=== PATIENT | female | born 1970 | race Caucasian/White ===

== ENCOUNTER 2021-05-10 14:46 | Inpatient (IN) | payer SELFPAY ==
[2021-05-10 14:59] VITALS: PULSE 86; RESP 16; TEMP 36.7; O2SAT 95; BMI 36.0
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
[2021-05-10 15:13] VITALS: PULSE 86; RESP 17; TEMP 36.9; O2SAT 95
--- NOTE | 2021-05-10 15:29 | ECG_ITS ---
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 Measurements Intervals [place] Rate: 78 P: 70 AL: 142 QRS: 60 QRSD: 89 T: 58 QT: 410 QTc: 469 Interpretive Statements SINUS RHYTHM POSSIBLE LEFT ATRIAL ENLARGEMENT [-0.1mV P-WAVE IN V1/V2] POSSIBLE RIGHT VENTRICULAR CONDUCTION DELAY [RSR (QR) IN V1/V2] No previous ECG available for comparison Electronically Signed On 05-10-2021 16:09:30 CDT by Deirdre Morales M.D. [id number]
[2021-05-10 15:56] LABS: HCG Qualitative Urine. Negative (Negative)
[2021-05-10 16:03] LABS: Amphetamines Screen Urine Negative (Negative); Barbiturates Screen Urine Negative (Negative); Benzodiazepines Screen Urine Negative (Negative); Cocaine Screen Urine Negative (Negative); Opiate Screen Urine Negative (Negative); PCP Screen Urine Negative (Negative); THC Screen Urine Negative (Negative)
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
[2021-05-10 16:18] LABS: Basophils % 0.6 %; Eosinophils # 0.2 10^3/uL (0.0-0.8); Eosinophils % 3.5 %; Hematocrit 46.1 % (37.0-47.0); Hemoglobin 14.9 g/dL (11.5-15.3); Lymphocytes # 2.3 10^3/uL (0.8-4.8); Lymphocytes % 36.6 %; Mean Corpuscular HGB Conc 32.3 g/dL (30.0-36.0); Mean Corpuscular Volume 99.1 fl (81-99); Mean Platelet Volume 9.8 fL (7.4-10.4); Monocytes # 0.4 10^3/uL (0.2-0.9); Monocytes % 6.2 %; Neutrophils # 3.34 10^3/uL (1.8-7.7); Neutrophils % 52.9 %; Nucleated Red Blood Cells % 0 %; Platelet Count 281 10^3/cmm (130-400); Red Blood Count 4.65 10^6/uL (4.1-5.3); Red Cell Distribution Width 12.9 % (12.1-15.1); White Blood Count 6.3 10^3/uL (4.0-10.0)
[2021-05-10 16:43] LABS: Alanine Aminotransferase 16 U/L (0-33); Albumin Level 3.8 g/dL (3.5-5.2); Alkaline Phosphatase 68 IU/L (35-105); Anion Gap 13.6 (5-19); Aspartate Amino Transferase 17 U/L (0-32); Blood Urea Nitrogen 6 mg/dL (6-20); Calcium 8.8 mg/dL (8.5-10.5); Carbon Dioxide 28 mmol/L (22-29); Chloride 103 mmol/L (98-107); Globulin 2.9 g/dL (1.3-4.6); Glomerular Filtration Rate 129.6 mL/min (90-130); Glucose 86 mg/dL (65-115); Osmolality Calculated 289 mOsm/kg (285-295); Potassium 3.6 mmol/L (3.5-5.1); Sodium 141 mmol/L (136-145); Thyroid Stimulating Hormone 1.03 uIU/mL (0.27-4.20); Total Bilirubin 0.4 mg/dL (0.15-1.2); Total Protein 6.7 g/dL (6.6-8.7)
[2021-05-10 16:49] LABS: Acetaminophen < 5.0 ug/mL (10-30); Salicylate < 0.3 mg/dL (3-10)
[2021-05-10 16:52] LABS: Slide Review Slide Review Perform
--- NOTE | 2021-05-10 17:09 | PC.NURSE ---
PATIENT ASLEEP IN ROOM. THIS NURSE ASKED PATIENT IF ANY NEEDS AT THIS TIME ALONG WITH ASSESSMENT. PATIENT STATED THAT SHE FELT THE SAME, WAS TIRED, AND HAD NO FURTHER NEEDS.
[2021-05-10 18:53] VITALS: BP 108/77; PULSE 81; RESP 18; TEMP 36.7; O2SAT 93
[2021-05-10] MEDS: hyDROXYzine 25 mg Capsule 50 MG PO (21:23)
--- NOTE | 2021-05-10 21:30 | PC.NURSE ---
pt requested anxiety med. vistaril 50mg po given.
[2021-05-10 22:00] VITALS: BP 112/67; PULSE 84; RESP 17; TEMP 36.7; O2SAT 91
--- NOTE | 2021-05-10 23:15 | PC.NURSE ---
pt resting quietly in room with both eyes closed.
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
[2021-05-11 06:00] VITALS: BP 128/75; PULSE 76; RESP 17; TEMP 36.6; O2SAT 95
--- NOTE | 2021-05-11 12:05 | NPU.GN ---
[facility] Unit Group Topic: Self medicating General Mood of Group: Ashtyn showed up to group late but participated. CSS asked Ashtyn if she self medicated and how it affected the people in her life. She share that yes and now she has no one and no place to stay. CSS then encourage Ashtyn to seek a referral from the Doctor for [facility], CPRC services starting with ERE or TCM which may be able to assist her to get and maintain that stability.
--- NOTE | 2021-05-11 12:32 | NPU.GN ---
[facility] Unit Group Topic: General Mood of Group
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
[2021-05-11 14:00] VITALS: BP 108/61; PULSE 74; RESP 18; TEMP 37; O2SAT 94
[2021-05-11 20:19] VITALS: BP 115/82; PULSE 74; RESP 17; TEMP 36.6; O2SAT 91
[2021-05-12 06:00] VITALS: BP 104/67; PULSE 73; RESP 17; TEMP 36.4; O2SAT 95
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
[2021-05-12 12:31] VITALS: BP 104/67; PULSE 73; RESP 17; TEMP 36.4; O2SAT 95
== END 2021-05-12 13:29 | disposition home or self-care (01) | DRG 881 ==
LOC: ER 16:07 → NP 17:44
PROVIDERS: Admitting Provider Psychiatry & Neurology Psychiatry; Emergency Provider Emergency Medicine; Visit Provider Psychiatry & Neurology Psychiatry
DX: F32.9 Major depressive disorder, single episode, unspecified (principal); R45.851 Suicidal ideations; F41.9 Anxiety disorder, unspecified; F17.210 Nicotine dependence, cigarettes, uncomplicated; E66.9 Obesity, unspecified; Z86.59 Personal history of other mental and behavioral disorders; Z59.0 Homelessness; Z63.0 Problems in relationship with spouse or partner; Z81.8 Family history of other mental and behavioral disorders; Z81.1 Family history of alcohol abuse and dependence; Z68.36 Body mass index [BMI] 36.0-36.9, adult
CPT/HCPCS: 80053; 80306; 80307; 81025; 84443; 85025; 93005; 99285

== ENCOUNTER 2021-07-14 10:12 | Emergency (ER) | payer SELFPAY ==
[2021-07-14 10:13] VITALS: BP 133/100; PULSE 110; RESP 16; TEMP 36.3; O2SAT 98; BMI 31.9
--- NOTE | 2021-07-14 10:18 | ED_ITS ---
HPI - Psych General: Chief Complaint: Psychiatric Symptoms Stated Complaint: PSYCH EVAL Time Seen by Provider: 07/14/21 10:18 History of Present Illness: HPI Narrative: Ms Garcia is a 50-year-old lady with a history of depression, anxiety, and PTSD who presents the emergency department due to psychiatric concerns. She was previously hospitalized in April for similar concerns and not started on medication at that time. She reports she was discharged with help of social work and had a place to live however, per the patient, this turned out to be some sort of a scam and she left to this location last night. She has been drinking alcohol as self-medi cating and last drink was last night. She denies SI or HI but endorses history of these thoughts. She reports anxiety is her primary complaint today. This is moderate intensity and exacerbated social situations. No other changes in health, specific exacerbating or alleviating factors identified. Review of Systems General: Reports: 10 or more systems reviewed and unremarkable except in HPI and below Physical Exam Narrative: EXAM NARRATIVE: GENERAL/CONSTITUTIONAL - well-appearing. No acute distress. Eyes -no scleral icterus, no conjunctival injection ENMT - Atraumatic external nose and ears. Moist mucous membranes NECK - supple. trachea midline CARDIOVASCULAR -tachycardic rate and regular rhythm. RESPIRATORY -clear to auscultation bilaterally. No retractions or accessory muscle use. ABDOMEN/GI - Nontender/Nondistended. MSK - Extremities without obvious deformity or tenderness to palpation SKIN - Warm, Dry NEURO - alert and appropriately oriented. Moves all extremities equally. PSYCH -anxious, mildly tearful Course ED course: - Patient was seen and evaluated by me at bedside - Patient placed on cardiac monitors, IV access obtained - Initial evaluation notable for sad affect, no acute distress. Patient adamantly denies SI or HI. - Labs notable for mild leukocytosis which might be reactive to recent alcohol abuse/dehydration. Mild transaminitis. -Discussed case with Dr. Giraldo of the psychiatry service. Patient to be initiated on Zoloft. Once again upon reassessment denies SI or HI, feels comfortable with this plan. - Upon serial reexamination after treatment the patient was similar - Based on patient history, evaluation, labs, and imaging as interpreted the most likely cause of the patient's condition is depression without suicidal ideation or evidence of acute psychosis - The results of ED evaluation were discussed with the patient including prescriptions and/or symptomatic cares (if applicable) including appropriate and responsible use, followup plan, and return precautions. The patient verbalized understanding and felt safe for discharge. - Patient discharged in satisfactory condition. Vital Signs: Vital signs: Vital Signs Temperature 97.4 F L 07/14/21 10:21 Pulse Rate 102 H 07/14/21 11:42 Respiratory Rate 14 07/14/21 11:42 Blood Pressure 136/78 07/14/21 11:42 Pulse Oximetry 96 07/14/21 11:42 MDM - Psych Medical Records: Attestation: I reviewed the patient's medical records. Lab Data: Attestation: I reviewed the patient's lab results. Labs: Lab Results 07/14/21 07/14/21 07/14/21 11:05 11:05 14:04 WBC 13.2 10^3/uL H 10 ^3/uL (4.0-10.0) RBC 5.10 10^6/uL 10^6 /uL (4.1-5.3) Hgb 16.3 g/dL H g/dL (11.5-15.3) Hct 49.9 % H % (37.0-47.0) MCV 97.8 fl fl (81-99) MCH 32.0 pg pg (28.0-34.0) MCHC 32.7 g/dL g/dL (30.0-36.0) RDW 13.2 % % (12.1-15.1) Plt Count 325 10^3/cmm 10^3 /cmm (130-400) MPV 9.5 fL fL (7.4-10.4) Neut % (Auto) 77.2 % % Lymph % (Auto) 17.5 % % Ashley % (Auto) 4.1 % % Eos % (Auto) 0.5 % % Baso % (Auto) 0.3 % % Neut # (Auto) 10.22 10^3/uL H 1 0^3/uL (1.8-7.7) Lymph # (Auto) 2.3 10^3/uL 10^3/ uL (0.8-4.8) Ashley # (Auto) 0.5 10^3/uL 10^3/ uL (0.2-0.9) Eos # (Auto) 0.1 10^3/uL 10^3/ uL (0.0-0.8) Baso # (Auto) 0.0 10^3/uL 10^3/ uL (0.0-0.1) Nucleated RBC % (a uto) 0 % % Nucleated RBCs # 0.0 /100WBC /100W BC Sodium 137 mmol/L mmol/L (136-145) Potassium 3.9 mmol/L mmol/L (3.5-5.1) Chloride 100 mmol/L mmol/L (98-107) Carbon Dioxide 25 mmol/L mmol/L (22-29) Anion Gap 15.9 (5-19) BUN 7 mg/dL mg/dL (6-20) Creatinine 0.4 mg/dL L mg/dL (0.5-0.9) GFR Calculation 167.6 mL/min H mL /min (90-130) Glucose 101 mg/dL mg/dL (65-115) Calculated Osmolal ity 282 mOsm/kg L mOs m/kg (285-295) Calcium 9.0 mg/dL mg/dL (8.5-10.5) Total Bilirubin 0.5 mg/dL mg/dL (0.15-1.2) AST 34 U/L H U/L (0-32) ALT 37 U/L H U/L (0-33) Alkaline Phosphata se 80 IU/L IU/L (35-105) Total Protein 7.5 g/dL g/dL (6.6-8.7) Albumin 4.3 g/dL g/dL (3.5-5.2) Globulin 3.2 g/dL g/dL (1.3-4.6) TSH 0.83 uIU/mL uIU/m L (0.27-4.20) Salicylates < 0.3 mg/dL L mg/ dL (3-10) Urine Opiates Scre en Negative ng/mL ng /mL (Negative) Acetaminophen < 5.0 ug/mL L ug/ mL (10-30) Ur Barbiturates Sc reen Negative ng/mL ng /mL (Negative) Ur Phencyclidine S crn Negative ng/mL ng /mL (Negative) Ur Amphetamines Sc reen Negative ng/mL ng /mL (Negative) U Benzodiazepines Scrn Negative ng/mL ng /mL (Negative) Urine Cocaine Scre en Negative ng/mL ng /mL (Negative) U Marijuana (THC) Screen Negative ng/mL ng /mL (Negative) Ethyl Alcohol < 10 mg/dL mg/dL (0-10) EKG Data^: EKG 1: Attestation: I personally reviewed and interpreted this EKG as follows: EKG interpretation date: 07/14/21 EKG interpretation time: 11:15 Interpretation: Twelve-lead EKG shows a regular rhythm at a rate of 98. WA interval 130, QRS duration 85, QTc 407. Normal axis. Interpretation: Sinus rhythm Discharge Plan Discharge Patient Disposition: Home Clinical Impression: Anxiety, History of posttraumatic stress disorder (PTSD) Condition: Stable Prescriptions: New Zoloft 50 mg tablet 50 mg PO DAILY Qty: 30 RF: 0 No Action multivitamin Tablet 1 tab PO DAILY RF: 0 Vitamin C 1,000 mg Tablet 1,000 mg PO DAILY RF: 0 Aspir-81 81 mg Tablet,Delayed Release (Dr/Ec) 81 mg PO DAILY RF: 0 Fish Oil 1 cap PO DAILY RF: 0 Discharge Orders: Discharge ED (Routine); Ordered 07/14/21 Ordered By: Jason Brooks Discharge Diet: Usual diet Discharge Activity: Resume usual activity Patient Instructions: Sertraline (By mouth), Anxiety (ED) Activity Restrictions/Additional Instructions: Thank you for visiting the emergency department. You were seen and evaluated for anxiety and PTSD. Please follow-up with your primary care provider and mental health provider. You will be initiated on Zoloft. Please return for suicidal ideation or homicidal ideation. Please return for anything else that you are concerned about and feel needs emergency department evaluation. Coding Level of Care Code ED [employer] [facility] for Ita Gomez
[2021-07-14 10:21] VITALS: BP 133/100; PULSE 114; RESP 16; TEMP 36.3; O2SAT 97
--- NOTE | 2021-07-14 10:38 | ECG_ITS ---
[facility] Test Date: 2021-07-14 Pat Name: Ashtyn Garcia Department: Room: Gender: Female Melter Assistant: : 1970 Requested By: Jason Brooks Order Number: [id number] Reading MD: KATELYN CHAPPELL Measurements Intervals [place] Rate: 98 P: 80 [place]: 130 QRS: 60 QRSD: 85 T: 48 QT: 352 QTc: 449 Interpretive Statements SINUS RHYTHM Compared to ECG 05/10/2021 15:42:09 No significant changes Electronically Signed On 07-14-2021 13:56:27 CDT by KATELYN CHAPPELL [id number]
--- NOTE | 2021-07-14 10:42 | PC.PHAR ---
PT STATES SHE TAKES CARE OF HER OWN MEDICATIONS-PT STATES SHE TAKES NO RX MEDICATIONS-PT STATES SHE USE TO HAVE A PROAIR INHALER BUT STATES SHE HASNT USED IN 6 MONTHS-
[2021-07-14 11:16] LABS: Basophils % 0.3 %; Eosinophils # 0.1 10^3/uL (0.0-0.8); Eosinophils % 0.5 %; Hematocrit 49.9 % (37.0-47.0); Hemoglobin 16.3 g/dL (11.5-15.3); Lymphocytes # 2.3 10^3/uL (0.8-4.8); Lymphocytes % 17.5 %; Mean Corpuscular HGB Conc 32.7 g/dL (30.0-36.0); Mean Corpuscular Volume 97.8 fl (81-99); Mean Platelet Volume 9.5 fL (7.4-10.4); Monocytes # 0.5 10^3/uL (0.2-0.9); Monocytes % 4.1 %; Neutrophils # 10.22 10^3/uL (1.8-7.7); Neutrophils % 77.2 %; Nucleated Red Blood Cells % 0 %; Platelet Count 325 10^3/cmm (130-400); Red Cell Distribution Width 13.2 % (12.1-15.1); White Blood Count 13.2 10^3/uL (4.0-10.0)
[2021-07-14] MEDS: lactated ringers 1,000 ML 999 ML IV (11:40)
[2021-07-14] MEDS: LORazepam 2 mg/mL INJ 1 mL 0.5 MG IVP (11:41)
[2021-07-14 11:42] VITALS: BP 136/78; PULSE 102; RESP 14; O2SAT 96
[2021-07-14 11:50] LABS: Alanine Aminotransferase 37 U/L (0-33); Albumin Level 4.3 g/dL (3.5-5.2); Alkaline Phosphatase 80 IU/L (35-105); Anion Gap 15.9 (5-19); Aspartate Amino Transferase 34 U/L (0-32); Blood Urea Nitrogen 7 mg/dL (6-20); Carbon Dioxide 25 mmol/L (22-29); Chloride 100 mmol/L (98-107); Globulin 3.2 g/dL (1.3-4.6); Glomerular Filtration Rate 167.6 mL/min (90-130); Glucose 101 mg/dL (65-115); Osmolality Calculated 282 mOsm/kg (285-295); Potassium 3.9 mmol/L (3.5-5.1); Sodium 137 mmol/L (136-145); Thyroid Stimulating Hormone 0.83 uIU/mL (0.27-4.20); Total Bilirubin 0.5 mg/dL (0.15-1.2); Total Protein 7.5 g/dL (6.6-8.7)
[2021-07-14 11:52] LABS: Acetaminophen < 5.0 ug/mL (10-30); Alcohol Level < 10 mg/dL (0-10); Salicylate < 0.3 mg/dL (3-10)
[2021-07-14 14:26] LABS: Amphetamines Screen Urine Negative (Negative); Barbiturates Screen Urine Negative (Negative); Benzodiazepines Screen Urine Negative (Negative); Cocaine Screen Urine Negative (Negative); Opiate Screen Urine Negative (Negative); PCP Screen Urine Negative (Negative); THC Screen Urine Negative (Negative)
--- NOTE | 2021-07-15 09:53 | DCPLANNER ---
manager front had message to speak with patient about services at [facility]. manager front called and spoke with patient about services at [facility]. manager front informed patient that she could go to [facility] Sunday thru Sunday, fill out initial paperwork and then be scheduled for the initial assessment.
== END 2021-07-14 16:04 | disposition home or self-care (01) ==
PROVIDERS: Emergency Provider Emergency Medicine
DX: F41.9 Anxiety disorder, unspecified (principal); F43.10 Post-traumatic stress disorder, unspecified; Z79.82 Long term (current) use of aspirin
CPT/HCPCS: 80053; 80306; 80307; 84443; 85025; 93005; 96361; 96374; 99284; J2060

== ENCOUNTER → 2021-09-27 15:14 | Outpatient (BNVA) | payer OTHER, SELFPAY | PROVIDERS: Visit Provider Nurse Practitioner Psychiatric/Mental Health | DX: Z03.89 Encounter for observation for other suspected diseases and conditions ruled out (principal) | CPT/HCPCS: 80053; 80307; 85025 ==